=== PATIENT | female | born 1955 | race Caucasian/White ===

== ENCOUNTER 2019-02-16 13:43 | Emergency (ER) | payer MEDICAID, OTHER, SELFPAY ==
[~2019-02-16] VITALS: Ht 160 cm; Wt 57.0 kg
[2019-02-16 13:47] VITALS: BP 111/95
--- NOTE | 2019-02-16 14:15 | NUR ---
REPORT RECEIVED FROM SHELLI PARK. PT HERE WITH C/O LOWER BACK PAIN AND RASH.
--- NOTE | 2019-02-16 14:19 | NUR ---
Patient/Caregiver given discharge instructions and they have confirmed that they understand the instructions. Patient ambulatory with steady gait.
[2019-02-16] MEDS ORDERED: OXYcodone/APAP 5/325MG TABLET ONE (14:37)
--- NOTE | 2019-02-16 14:38 | NUR ---
PT MEDICATED PER ORDER.
[2019-02-16] MEDS ORDERED: OXYcodone/APAP 5/325MG TABLET PO ONE (15:00)
== END 2019-02-16 14:42 | disposition home or self-care (01) ==
LOC: ED 14:20
DX: M54.5 Low back pain (principal); B02.33 Zoster keratitis; R10.2 Pelvic and perineal pain; M19.90 Unspecified osteoarthritis, unspecified site
CPT/HCPCS: 99283